=== PATIENT | female | born 1945 | race Caucasian/White ===

== ENCOUNTER → 2016-09-13 | Outpatient (CLI) | payer MEDICARE, OTHER | LOC: MAMO 12:23 | DX: Z12.31 Encounter for screening mammogram for malignant neoplasm of breast (principal); Z13.820 Encounter for screening for osteoporosis; M85.88 Other specified disorders of bone density and structure, other site; Z90.710 Acquired absence of both cervix and uterus | CPT/HCPCS: 77080; G0202 ==

== ENCOUNTER → 2021-06-06 | Outpatient (CLI) | payer MEDICARE, OTHER ==
[~2021-06-06] MED LIST: BENADRYL 25MG C25 MG PO; BIOTIN1 M1 PO; CALCIUM PO; CLARITIN10 MG PO; ECOTRIN81 MG PO; GARLIC1000 MG PO; IBU800 MG PO; MAGNESIUM250 M1 PO; PRIMROSE OIL PO; RANITIDINE HCL150 MG PO; THERATRUM COMP1 EACH PO; VITAMIN B-121000 MCG PO; XANAX0.5 MG PO
== END ==
LOC: KOH-I 08:00 → MRI 08:00
DX: M75.101 Unspecified rotator cuff tear or rupture of right shoulder, not specified as traumatic (principal); M19.011 Primary osteoarthritis, right shoulder; Z96.698 Presence of other orthopedic joint implants
CPT/HCPCS: 73221

== ENCOUNTER → 2021-11-01 | Outpatient (CLI) | payer MEDICARE, OTHER | LOC: MAMO 08-01 13:00 | DX: Z12.31 Encounter for screening mammogram for malignant neoplasm of breast (principal) | CPT/HCPCS: 77063; 77067 ==